=== PATIENT | male | born 1970 | race African-American/Black ===

== ENCOUNTER 2018-03-11 15:57 | Emergency (ER) | payer MEDICAID, OTHER ==
[~2018-03-11] VITALS: Ht 172.7 cm; Wt 66.0 kg
[2018-03-11] MEDS ORDERED: CLOTRIMAZOLE 1% CREAM 30GM TOP STA (17:40)
[2018-03-11] MEDS ORDERED: CEPHALEXIN 500MG CAPSULE PO ONE (17:45)
[2018-03-11 19:16] LABS: BASOPHILS % 0.3 % (0.0-2.0); HEMATOCRIT. 38.6 % (42.0-52.0); LYMPHOCYTES % 33.1 % (20.0-50.0); MEAN CORPUSCULAR HEMOGLOBIN 31.6 pg (28.0-32.0); MEAN CORPUSCULAR VOLUME 93.8 fL (80.0-94.0); NEUTROPHILS % 55.6 % (40.0-76.0); PLATELET 338 x1000/uL (130-400); RED BLOOD CELL COUNT 4.11 mill/uL (4.7-6.1); RED CELL DISTRIBUTION WIDTH 14.1 % (11.6-14.6)
[2018-03-11 19:17] LABS: CHLORIDE 111 mEq/L (98-107)
[2018-03-11 19:21] LABS: ETHANOL BLOOD < 10 mg/dL
[2018-03-11 19:59] VITALS: BP 130/75
== END 2018-03-11 20:02 | disposition home or self-care (01) ==
LOC: ER 16:16
DX: B35.6 Tinea cruris (principal); F12.10 Cannabis abuse, uncomplicated; F10.10 Alcohol abuse, uncomplicated; Y90.0 Blood alcohol level of less than 20 mg/100 ml
CPT/HCPCS: 36415; 80048; 80307; 80329; 82962; 85025; 99284; G0482

== ENCOUNTER 2018-04-30 22:18 | Emergency (ER) | payer MEDICAID ==
[~2018-04-30] VITALS: Ht 162.6 cm; Wt 86.0 kg
[2018-04-30] MEDS ORDERED: LORAZEPAM 1MG TABLET PO ONE (23:15)
[2018-04-30 23:35] VITALS: BP 140/101
== END 2018-04-30 23:43 | disposition home or self-care (01) ==
LOC: ER 22:29
DX: F15.10 Other stimulant abuse, uncomplicated (principal); B35.6 Tinea cruris; F41.9 Anxiety disorder, unspecified; F12.10 Cannabis abuse, uncomplicated; F19.10 Other psychoactive substance abuse, uncomplicated; F17.200 Nicotine dependence, unspecified, uncomplicated
CPT/HCPCS: 99283

== ENCOUNTER 2021-10-28 13:44 | Emergency (ER) | payer MEDICAID ==
[~2021-10-28] VITALS: Ht 172.7 cm; Wt 76.0 kg
[2021-10-28 17:05] VITALS: BP 155/80
[2021-10-28] MEDS ORDERED: CLIN300C12 MT (17:19)
[2021-10-28] MEDS ORDERED: MUPI1OIN4 TP (17:20)
== END 2021-10-28 19:59 | disposition home or self-care (01) ==
LOC: ER 13:44
DX: S01.332A Puncture wound without foreign body of left ear, initial encounter (principal); F10.129 Alcohol abuse with intoxication, unspecified; Y90.9 Presence of alcohol in blood, level not specified; I25.2 Old myocardial infarction; W57.XXXA Bitten or stung by nonvenomous insect and other nonvenomous arthropods, initial encounter; Y93.9 Activity, unspecified; Y92.89 Other specified places as the place of occurrence of the external cause
CPT/HCPCS: 99283

== ENCOUNTER 2021-12-29 05:44 | Inpatient (IN) | payer MEDICAID ==
[~2021-12-29] VITALS: Ht 170.2 cm; Wt 66.7 kg
[~2021-12-29 05:44] MED LIST: CLIN300C12 MT; MUPI1OIN4 TP
[2021-12-29] MEDS ORDERED: ONDANSETRON HCL 4MG/2ML INJ IV STA (06:02)
[2021-12-29] MEDS ORDERED: FAMOTIDINE 20MG/2ML VIAL IV ONE (06:15)
[2021-12-29] MEDS ORDERED: SODIUM CHLORIDE 0.9% 1,000 ML IV ONE (06:15)
[2021-12-29 06:29] LABS: BASOPHILS % 0.4 % (0.0-2.0); EOSINOPHILS % 0.7 % (0.0-5.0); HEMATOCRIT. 43.3 % (42.0-52.0); LYMPHOCYTES % 27.7 % (20.0-50.0); MEAN CORPUSCULAR HEMOGLOBIN 30.5 pg (28.0-32.0); MEAN CORPUSCULAR VOLUME 94.5 fL (80.0-94.0); MEAN PLATELET VOLUME 7.5 fl (7.4-10.4); MONOCYTES % 10.6 % (2.0-8.0); NEUTROPHILS % 60.6 % (40.0-76.0); PLATELET 371 x1000/uL (130-400); RED BLOOD CELL COUNT 4.58 mill/uL (4.7-6.1); RED CELL DISTRIBUTION WIDTH 16.4 % (11.6-14.6)
[2021-12-29 06:38] LABS: CHLORIDE 108 mEq/L (98-107)
[2021-12-29 06:43] LABS: ETHANOL BLOOD < 10 mg/dL
[2021-12-29] MEDS ORDERED: FUROSEMIDE 40MG/4ML VIAL IVP ONE (07:15)
[2021-12-29 09:07] LABS: BG BASE EXCESS -10.1 mmol/L (-2.0-2.0); BG DEOXYHEMOGLOBIN 8.8 % (0.0-5.0); BG FRACTION INSPIRED OXYGEN 21; BG HCO3 ACT 14.7 mmol/L (22.0-26.0); BG METHEMOGLOBIN 0.2 % (0.0-1.5); BG OXYGEN SATURATION 91.1 % (92.0-98.5); BG PH 7.309 (7.350-7.450); BG PO2 69.8 mmHg (75.0-100.0); BG SAMPLE SITE LEFT RADIAL; BG TOTAL HEMOGLOBIN 14.5 g/dL (12.0-18.0); BG VENT MODE ROOM AIR
[2021-12-29] MEDS ORDERED: IPRATROPIUM/ALBUTEROL 0.5-3(2.5)MG/3ML NEB HHN PRN (09:45)
[2021-12-29] MEDS ORDERED: DIPHENHYDRAMINE 50MG/ML VIAL IV PRN (09:45)
[2021-12-29] MEDS ORDERED: CLONIDINE 0.1MG TABLET PO PRN (09:45)
[2021-12-29] MEDS ORDERED: LORAZEPAM 2MG/ML CPJ IV PRN (09:45)
[2021-12-29] MEDS ORDERED: SODIUM POLYSTYRENE SULFONATE 15 G/60 ML BOT PO ONE (10:30)
[2021-12-29] MEDS ORDERED: SODIUM POLYSTYRENE SULFONATE 15 G/60 ML BOT PO NR (10:30)
[2021-12-29] MEDS ORDERED: ALBUTEROL (0.5%) 2.5MG/0.5ML NEB HHN ONE (10:30)
[2021-12-29] MEDS ORDERED: ALBUTEROL (0.5%) 2.5MG/0.5ML NEB HHN NR (10:30)
[2021-12-29 10:36] LABS: CREATINE KINASE 217 IU/L (39-308)
[2021-12-29 12:01] LABS: CLARITY URINE CLEAR (CLEAR); COLOR URINE YELLOW (YELLOW); KETONES URINE NEGATIVE (NEGATIVE); LEUKOCYTE ESTERASE URINE NEGATIVE (NEGATIVE); NITRITE URINE NEGATIVE (NEGATIVE); OCCULT BLOOD URINE NEGATIVE (NEGATIVE); PROTEIN URINE NEGATIVE (NEGATIVE); SPECIFIC GRAVITY URINE 1.007 (1.005-1.030); UROBILINOGEN URINE 0.2 E.U./dL (0.2-1.0)
[2021-12-29 12:10] LABS: *AMPHETAMINES SCREEN URINE NEGATIVE (NEGATIVE); *BARBITURATES SCREEN URINE NEGATIVE (NEGATIVE); *BENZODIAZEPINES SCREEN URINE NEGATIVE (NEGATIVE); CANNABINOID URINE SCREEN NEGATIVE (NEGATIVE); METHADONE URINE SCREEN NEGATIVE (NEGATIVE); OPIATES URINE SCREEN NEGATIVE (NEGATIVE)
[2021-12-29 12:11] LABS: *COCAINE SCREEN URINE PRESUMTIVE POSITIVE (NEGATIVE)
[2021-12-29 12:12] LABS: PHENCYCLIDINE URINE SCREEN NEGATIVE (NEGATIVE)
[2021-12-29] MEDS ORDERED: NALOXONE HCL 0.4MG/ML VIAL IV PRN (14:30)
[2021-12-29] MEDS: CHLORDIAZEPOXIDE 25MG CAPSULE PO SCH ×2 (14:50→21:02)
[2021-12-29 15:14] VITALS: BP 135/101
[2021-12-29 15:30] VITALS: BP 135/101
[2021-12-29 16:30] VITALS: BP 141/95
[2021-12-29] MEDS ORDERED: CLOP75TA33 PO (18:03)
[2021-12-29] MEDS ORDERED: METO-396 PO (18:03)
[2021-12-29] MEDS ORDERED: FURO20TA4 PO (18:04)
[2021-12-29] MEDS ORDERED: DAPA10TA MT (18:04)
[2021-12-29] MEDS: CLOPIDOGREL 75MG TABLET PO SCH (18:15)
[2021-12-29] MEDS: ASPIRIN 81MG TABLET PO SCH (18:15)
[2021-12-29] MEDS ORDERED: ZOLPIDEM TARTRATE 5MG TABLET PO PRN (19:00)
[2021-12-29 20:00] VITALS: BP 122/98
[2021-12-30] VITALS: BP 115/73
[2021-12-30 04:00] VITALS: BP 120/90
[2021-12-30] MEDS: CHLORDIAZEPOXIDE 25MG CAPSULE PO SCH ×3 (05:53→23:00)
[2021-12-30 07:12] LABS: ANTI-NUCLEAR ANTIBODIES DIRECT Positive (Negative)
[2021-12-30 07:20] VITALS: BP 128/103
[2021-12-30] MEDS: ASPIRIN 81MG TABLET PO SCH (11:15)
[2021-12-30] MEDS: CLOPIDOGREL 75MG TABLET PO SCH (11:15)
[2021-12-30 12:10] VITALS: BP 110/83
[2021-12-30] MEDS: FUROSEMIDE 20MG/2ML VIAL IVP SCH ×2 (14:00→14:33)
[2021-12-30] MEDS ORDERED: FUROSEMIDE 40MG TABLET PO SCH (14:30)
[2021-12-30 16:12] LABS: BASOPHILS % 0.5 % (0.0-2.0); EOSINOPHILS % 0.3 % (0.0-5.0); HEMATOCRIT. 43.3 % (42.0-52.0); HEMOGLOBIN. 13.6 g/dL (14.0-18.0); LYMPHOCYTES % 22.5 % (20.0-50.0); MEAN CORPUSCULAR HEMOGLOBIN 30.1 pg (28.0-32.0); MEAN CORPUSCULAR VOLUME 95.5 fL (80.0-94.0); MEAN PLATELET VOLUME 8.2 fl (7.4-10.4); MONOCYTES % 11.6 % (2.0-8.0); NEUTROPHILS % 65.1 % (40.0-76.0); PLATELET 225 x1000/uL (130-400); RED BLOOD CELL COUNT 4.53 mill/uL (4.7-6.1); RED CELL DISTRIBUTION WIDTH 16.4 % (11.6-14.6)
[2021-12-30 16:35] VITALS: BP 123/94
[2021-12-30] MEDS: CITRIC ACID/SODIUM CITRATE SOLN 30ML UDC PO SCH (17:57)
[2021-12-30 20:00] VITALS: BP 113/87
[2021-12-31] VITALS: BP 118/75
[2021-12-31 04:00] VITALS: BP 129/99
[2021-12-31] MEDS: CHLORDIAZEPOXIDE 25MG CAPSULE PO SCH ×2 (05:30→17:37)
[2021-12-31 08:00] VITALS: BP 121/81
[2021-12-31 08:32] LABS: BASOPHILS % 0.3 % (0.0-2.0); HEMATOCRIT. 43.1 % (42.0-52.0); HEMOGLOBIN. 14.1 g/dL (14.0-18.0); LYMPHOCYTES % 18.4 % (20.0-50.0); MEAN CORPUSCULAR HEMOGLOBIN 30.2 pg (28.0-32.0); MEAN CORPUSCULAR VOLUME 92.2 fL (80.0-94.0); MEAN PLATELET VOLUME 8.4 fl (7.4-10.4); MONOCYTES % 6.8 % (2.0-8.0); NEUTROPHILS % 73.5 % (40.0-76.0); PLATELET 217 x1000/uL (130-400); RED BLOOD CELL COUNT 4.68 mill/uL (4.7-6.1); RED CELL DISTRIBUTION WIDTH 15.9 % (11.6-14.6)
[2021-12-31] MEDS: CITRIC ACID/SODIUM CITRATE SOLN 30ML UDC PO SCH ×3 (08:34→17:36)
[2021-12-31] MEDS: ASPIRIN 81MG TABLET PO SCH (08:34)
[2021-12-31] MEDS: FUROSEMIDE 20MG/2ML VIAL IVP SCH (08:34)
[2021-12-31] MEDS: CLOPIDOGREL 75MG TABLET PO SCH (08:34)
[2021-12-31 12:00] VITALS: BP 119/93
[2021-12-31] MEDS: ONDANSETRON HCL 4MG/2ML INJ IV PRN (12:08)
[2021-12-31] MEDS ORDERED: IOHEXOL-350 100 ML BOTTLE ONE (13:30)
[2021-12-31] MEDS ORDERED: LIDOCAINE HCL 1% 20ML VIAL (Pyxis) INJ ONE (13:37)
[2021-12-31] MEDS: LACTULOSE 20G/30ML UDC PO SCH ×2 (14:00→21:28)
[2021-12-31 15:42] LABS: INR 1.4; PROTHROMBIN TIME 14.7 sec (9.6-11.0)
[2021-12-31 16:00] VITALS: BP 116/87
[2021-12-31 17:21] LABS: HEPATITIS B SURFACE ANTIGEN NEGATIVE
[2021-12-31 20:00] VITALS: BP 101/69
[2022-01-01] VITALS: BP 125/95
[2022-01-01] MEDS: ONDANSETRON HCL 4MG/2ML INJ IV PRN (00:03)
[2022-01-01 03:51] VITALS: BP 107/73
[2022-01-01] MEDS: LACTULOSE 20G/30ML UDC PO SCH (05:20)
[2022-01-01 08:00] VITALS: BP 122/97
[2022-01-01] MEDS: CLOPIDOGREL 75MG TABLET PO SCH (08:55)
[2022-01-01] MEDS: ASPIRIN 81MG TABLET PO SCH (08:56)
[2022-01-01] MEDS: CHLORDIAZEPOXIDE 25MG CAPSULE PO SCH (08:56)
[2022-01-01] MEDS: CITRIC ACID/SODIUM CITRATE SOLN 30ML UDC PO SCH ×3 (08:56→17:00)
[2022-01-01 10:08] LABS: BASOPHILS % 0.3 % (0.0-2.0); EOSINOPHILS % 2.1 % (0.0-5.0); HEMATOCRIT. 40.1 % (42.0-52.0); HEMOGLOBIN. 13.3 g/dL (14.0-18.0); LYMPHOCYTES % 15.9 % (20.0-50.0); MEAN CORPUSCULAR HEMOGLOBIN 30.2 pg (28.0-32.0); MEAN CORPUSCULAR VOLUME 91.4 fL (80.0-94.0); MONOCYTES % 8.8 % (2.0-8.0); NEUTROPHILS % 72.9 % (40.0-76.0); PLATELET 223 x1000/uL (130-400); RED BLOOD CELL COUNT 4.39 mill/uL (4.7-6.1); RED CELL DISTRIBUTION WIDTH 16.4 % (11.6-14.6)
[2022-01-01 10:09] LABS: CHLORIDE 108 mEq/L (98-107)
[2022-01-01 10:16] LABS: PHOSPHORUS 2.3 mg/dL (2.5-4.9)
[2022-01-01 12:00] VITALS: BP 120/98
[2022-01-01] MEDS: FUROSEMIDE 40MG/4ML VIAL IVP SCH (12:51)
[2022-01-01] MEDS: MORPHINE SULFATE 2 MG/ML CPJ (NOT FOR IM USE) IV PRN ×2 (12:52→16:49)
[2022-01-01] MEDS: ENOXAPARIN 80MG/0.8ML SYR SUBCUT SCH ×2 (12:53→22:21)
[2022-01-01 16:00] VITALS: BP 130/100
[2022-01-01] MEDS: CALCIUM CARBONATE 500MG TABLET CHEW PO SCH (19:31)
[2022-01-01 20:00] VITALS: BP 119/87
[2022-01-01] MEDS: METOPROLOL TARTRATE 25MG TABLET PO SCH (21:00)
[2022-01-02] VITALS: BP 98/63
[2022-01-02 04:00] VITALS: BP 101/69
[2022-01-02 06:05] LABS: BASOPHILS % 0.4 % (0.0-2.0); EOSINOPHILS % 3.9 % (0.0-5.0); HEMATOCRIT. 39.5 % (42.0-52.0); HEMOGLOBIN. 12.9 g/dL (14.0-18.0); LYMPHOCYTES % 21.2 % (20.0-50.0); MEAN CORPUSCULAR HEMOGLOBIN 30.2 pg (28.0-32.0); MEAN CORPUSCULAR VOLUME 92.4 fL (80.0-94.0); MEAN PLATELET VOLUME 8.2 fl (7.4-10.4); MONOCYTES % 6.7 % (2.0-8.0); NEUTROPHILS % 67.8 % (40.0-76.0); PLATELET 249 x1000/uL (130-400); RED BLOOD CELL COUNT 4.28 mill/uL (4.7-6.1); RED CELL DISTRIBUTION WIDTH 16.2 % (11.6-14.6)
[2022-01-02 06:06] LABS: INR 1.1; PROTHROMBIN TIME 11.9 sec (9.6-11.0)
[2022-01-02 06:10] LABS: CHLORIDE 106 mEq/L (98-107)
[2022-01-02 08:00] VITALS: BP 95/69
[2022-01-02] MEDS: CITRIC ACID/SODIUM CITRATE SOLN 30ML UDC PO SCH ×3 (08:22→17:05)
[2022-01-02] MEDS: FUROSEMIDE 40MG/4ML VIAL IVP SCH (08:22)
[2022-01-02] MEDS: CALCIUM CARBONATE 500MG TABLET CHEW PO SCH ×3 (08:22→17:06)
[2022-01-02] MEDS: CLOPIDOGREL 75MG TABLET PO SCH (08:22)
[2022-01-02] MEDS: METOPROLOL TARTRATE 25MG TABLET PO SCH (09:00)
[2022-01-02] MEDS ORDERED: CHLORDIAZEPOXIDE 25MG CAPSULE PO SCH (09:00)
[2022-01-02 11:43] VITALS: BP 87/55
[2022-01-02] MEDS: ENOXAPARIN 80MG/0.8ML SYR SUBCUT SCH (12:35)
[2022-01-02] MEDS ORDERED: POTASSIUM CHLORIDE 20MEQ TABLET SR PO SCH (13:00)
[2022-01-02 16:00] VITALS: BP 101/69
[2022-01-02 20:00] VITALS: BP 102/74
[2022-01-02] MEDS ORDERED: ENOXAPARIN 60MG/0.6ML SYR SUBCUT SCH (23:00)
[2022-01-03] VITALS: BP 100/70
[2022-01-03 04:00] VITALS: BP 104/75
[2022-01-03 05:29] LABS: BASOPHILS % 0.4 % (0.0-2.0); EOSINOPHILS % 4.5 % (0.0-5.0); HEMATOCRIT. 40.1 % (42.0-52.0); HEMOGLOBIN. 12.9 g/dL (14.0-18.0); LYMPHOCYTES % 30.1 % (20.0-50.0); MEAN CORPUSCULAR HEMOGLOBIN 30.1 pg (28.0-32.0); MEAN CORPUSCULAR VOLUME 93.1 fL (80.0-94.0); MONOCYTES % 10.3 % (2.0-8.0); NEUTROPHILS % 54.7 % (40.0-76.0); PLATELET 284 x1000/uL (130-400); RED BLOOD CELL COUNT 4.31 mill/uL (4.7-6.1); RED CELL DISTRIBUTION WIDTH 16.6 % (11.6-14.6)
[2022-01-03 05:37] LABS: CHLORIDE 105 mEq/L (98-107)
[2022-01-03 08:00] VITALS: BP 107/78
[2022-01-03] MEDS: CITRIC ACID/SODIUM CITRATE SOLN 30ML UDC PO SCH ×2 (09:58→14:23)
[2022-01-03] MEDS: CLOPIDOGREL 75MG TABLET PO SCH (09:58)
[2022-01-03] MEDS: CALCIUM CARBONATE 500MG TABLET CHEW PO SCH ×2 (09:58→14:23)
[2022-01-03 12:00] VITALS: BP 95/68
[2022-01-03] MEDS ORDERED: ENOXAPARIN 80MG/0.8ML SYR SUBCUT SCH ×2 (13:50→15:00)
[2022-01-03] MEDS ORDERED: APIX5TAB MT (13:53)
[2022-01-03 16:57] VITALS: BP 95/68
== END 2022-01-03 19:09 | disposition home or self-care (01) | DRG 816 ==
LOC: ER 05:44 → 6WST 09:21 → EDBEDREQ 09:45 → EDBEDREQTM 09:45 → ENRESERV 13:41 → ER 14:20
PROVIDERS: ADMIT Internal Medicine; ATTEND Internal Medicine
PROC: 02HV33Z Insertion of Infusion Device into Superior Vena Cava, Percutaneous Approach (ICD-10-PCS; principal; 2021-12-31)
PROC: B548ZZA Ultrasonography of Superior Vena Cava, Guidance (ICD-10-PCS; 2021-12-31)
PROC: B518ZZA Fluoroscopy of Superior Vena Cava, Guidance (ICD-10-PCS; 2021-12-31)
DX: T40.5X1A Poisoning by cocaine, accidental (unintentional), initial encounter (principal); K72.00 Acute and subacute hepatic failure without coma; G93.40 Encephalopathy, unspecified; I50.23 Acute on chronic systolic (congestive) heart failure; I13.0 Hypertensive heart and chronic kidney disease with heart failure and stage 1 through stage 4 chronic kidney disease, or unspecified chronic kidney disease; I27.20 Pulmonary hypertension, unspecified; R18.8 Other ascites; I95.9 Hypotension, unspecified; E86.0 Dehydration; N17.9 Acute kidney failure, unspecified; E86.9 Volume depletion, unspecified; I51.3 Intracardiac thrombosis, not elsewhere classified; R07.89 Other chest pain; I25.10 Atherosclerotic heart disease of native coronary artery without angina pectoris; R76.8 Other specified abnormal immunological findings in serum; F14.10 Cocaine abuse, uncomplicated; F41.9 Anxiety disorder, unspecified; E87.5 Hyperkalemia; N18.9 Chronic kidney disease, unspecified; F10.10 Alcohol abuse, uncomplicated; K82.9 Disease of gallbladder, unspecified; Z20.822 Contact with and (suspected) exposure to COVID-19; F17.210 Nicotine dependence, cigarettes, uncomplicated; Z86.73 Personal history of transient ischemic attack (TIA), and cerebral infarction without residual deficits; Z95.5 Presence of coronary angioplasty implant and graft; Z82.49 Family history of ischemic heart disease and other diseases of the circulatory system; Z79.02 Long term (current) use of antithrombotics/antiplatelets; Z71.6 Tobacco abuse counseling; Z71.41 Alcohol abuse counseling and surveillance of alcoholic; Z91.19 Patient's noncompliance with other medical treatment and regimen
CPT/HCPCS: 36415; 36573; 36600; 70551; 71045; 71275; 74018; 76705; 80048; 80053; 80076; 80305; 80320; 81003; 82140; 82375; 82550; 82805; 83036; 83735; 83880; 84100; 84145; 84484; 85025; 86038; 86160; 86705; 86709; 86803; 87340; 87426; 93005; 93306; 93970; 94640; 99285; C1725; C1893; J1650; J1940; J2270; J2405; J3490; J7030; Q9967; G0480

== ENCOUNTER 2022-01-04 13:14 | Emergency (ER) | payer MEDICAID ==
[~2022-01-04] VITALS: Ht 170.2 cm; Wt 59.0 kg
[~2022-01-04 13:14] MED LIST changes: +APIX5TAB MT; -CLIN300C12 MT; +CLOP75TA33 PO; +DAPA10TA MT; +FURO20TA4 PO; +METO-396 PO
[2022-01-04 13:25] VITALS: BP 123/80
[2022-01-04 15:48] LABS: CHLORIDE 105 mEq/L (98-107)
[2022-01-04 15:54] LABS: BASOPHILS % 0.4 % (0.0-2.0); EOSINOPHILS % 4.4 % (0.0-5.0); HEMATOCRIT. 37.7 % (42.0-52.0); HEMOGLOBIN. 12.4 g/dL (14.0-18.0); LYMPHOCYTES % 21.8 % (20.0-50.0); MEAN CORPUSCULAR HEMOGLOBIN 30.8 pg (28.0-32.0); MEAN CORPUSCULAR VOLUME 93.1 fL (80.0-94.0); MEAN PLATELET VOLUME 7.9 fl (7.4-10.4); MONOCYTES % 10.2 % (2.0-8.0); NEUTROPHILS % 63.2 % (40.0-76.0); PLATELET 306 x1000/uL (130-400); RED BLOOD CELL COUNT 4.04 mill/uL (4.7-6.1); RED CELL DISTRIBUTION WIDTH 16.3 % (11.6-14.6)
[2022-01-04] MEDS ORDERED: SODIUM CHLORIDE 0.9% 500 ML IV ONE (16:30)
[2022-01-04] MEDS ORDERED: ASPIRIN 325MG EC TABLET PO ONE (16:30)
== END 2022-01-04 20:55 | disposition left against medical advice (07) ==
LOC: ER 14:23 → SUPCPDRO 21:59
DX: R51.9 Headache, unspecified (principal)
CPT/HCPCS: 36415; 80053; 82962; 83690; 83880; 84484; 85025; 93005; 99284; J7040

== ENCOUNTER 2022-01-14 20:44 | Emergency (ER) | payer MEDICAID ==
[~2022-01-14] VITALS: Ht 177.8 cm; Wt 78.0 kg
[2022-01-14] MEDS ORDERED: KETOROLAC 30MG/ML VIAL IV STA (21:48)
[2022-01-14] MEDS ORDERED: SODIUM CHLORIDE 0.9% 1,000 ML IV ONE (22:00)
[2022-01-14 23:04] LABS: BASOPHILS % 0.6 % (0.0-2.0); EOSINOPHILS % 0.9 % (0.0-5.0); HEMATOCRIT. 40.3 % (42.0-52.0); HEMOGLOBIN. 13.2 g/dL (14.0-18.0); LYMPHOCYTES % 24.5 % (20.0-50.0); MEAN CORPUSCULAR HEMOGLOBIN 30.5 pg (28.0-32.0); MEAN CORPUSCULAR VOLUME 92.9 fL (80.0-94.0); MEAN PLATELET VOLUME 7.8 fl (7.4-10.4); MONOCYTES % 8.4 % (2.0-8.0); NEUTROPHILS % 65.6 % (40.0-76.0); PLATELET 353 x1000/uL (130-400); RED BLOOD CELL COUNT 4.34 mill/uL (4.7-6.1); RED CELL DISTRIBUTION WIDTH 16.5 % (11.6-14.6)
[2022-01-14 23:12] LABS: CHLORIDE 108 mEq/L (98-107)
[2022-01-14] MEDS ORDERED: FUROSEMIDE 40MG/4ML VIAL IVP SCH (23:45)
[2022-01-15 01:30] VITALS: BP 124/92
[2022-01-15] MEDS ORDERED: BACL-141 MT (01:35)
== END 2022-01-15 01:45 | disposition home or self-care (01) ==
LOC: ER 20:44
DX: R07.89 Other chest pain (principal); F14.10 Cocaine abuse, uncomplicated; F15.10 Other stimulant abuse, uncomplicated; F12.10 Cannabis abuse, uncomplicated; I10 Essential (primary) hypertension; Z79.899 Other long term (current) drug therapy; Z98.890 Other specified postprocedural states
CPT/HCPCS: 36415; 71045; 80053; 83690; 83880; 84484; 85025; 93005; 96361; 96374; 96375; 99285; J1885; J1940; J7030

== ENCOUNTER 2022-04-09 20:34 | Inpatient (IN) | payer MEDICAID ==
[~2022-04-09] VITALS: Ht 165.1 cm; Wt 62.6 kg
[~2022-04-09 20:34] MED LIST changes: +BACL-141 MT
[2022-04-10 01:02] LABS: BASOPHILS % 0.2 % (0.0-2.0); HEMATOCRIT. 36.4 % (42.0-52.0); HEMOGLOBIN. 11.6 g/dL (14.0-18.0); LYMPHOCYTES % 17.6 % (20.0-50.0); MEAN CORPUSCULAR HEMOGLOBIN 25.9 pg (28.0-32.0); MEAN CORPUSCULAR VOLUME 81.1 fL (80.0-94.0); MEAN PLATELET VOLUME 8.5 fl (7.4-10.4); MONOCYTES % 6.8 % (2.0-8.0); NEUTROPHILS % 75.4 % (40.0-76.0); PLATELET 354 x1000/uL (130-400); RED BLOOD CELL COUNT 4.49 mill/uL (4.7-6.1); RED CELL DISTRIBUTION WIDTH 20.3 % (11.6-14.6)
[2022-04-10 01:06] LABS: CHLORIDE 71 mEq/L (98-107)
[2022-04-10 01:17] LABS: ETHANOL BLOOD < 10 mg/dL
[2022-04-10] MEDS ORDERED: MORPHINE SULFATE 4 MG/ML CPJ (NOT FOR IM USE) IV ONE (01:45)
[2022-04-10] MEDS ORDERED: AMOXICILLIN/POTASSIUM CLAVULANATE 875/125MG TAB PO ONE (01:45)
[2022-04-10] MEDS ORDERED: ONDANSETRON HCL 4MG/2ML INJ IV ONE (01:45)
[2022-04-10] MEDS ORDERED: CEFTRIAXONE 1 G PREMIX 50 ML IV ONE (01:45)
[2022-04-10 05:45] VITALS: BP 118/93
[2022-04-10 08:00] VITALS: BP 110/79
[2022-04-10] MEDS ORDERED: ACETAMINOPHEN 325MG TABLET PO PRN (08:15)
[2022-04-10] MEDS ORDERED: POTASSIUM CHLORIDE INJ 40 MEQ in DEXT 5% WATER 250 ML IV ONE (08:15)
[2022-04-10] MEDS ORDERED: DIPHENHYDRAMINE 50MG/ML VIAL IV PRN (08:15)
[2022-04-10] MEDS ORDERED: CLONIDINE 0.1MG TABLET PO PRN (08:15)
[2022-04-10] MEDS ORDERED: IPRATROPIUM/ALBUTEROL 0.5-3(2.5)MG/3ML NEB HHN PRN (08:15)
[2022-04-10] MEDS ORDERED: ONDANSETRON HCL 4MG/2ML INJ IV PRN (08:15)
[2022-04-10] MEDS: KCL 20MEQ/100ML X 2 FOR TOTAL KCL 40MEQ/200ML IV SCH ×3 (10:00→12:00)
[2022-04-10] MEDS: AZITHROMYCIN 500 MG in DEXT 5% WATER 250 ML IV SCH (11:00)
[2022-04-10] MEDS: SODIUM CHLORIDE 0.9% 1,000 ML IV SCH (11:00)
[2022-04-10 11:05] LABS: PHOSPHORUS 6.9 mg/dL (2.5-4.9)
[2022-04-10 12:00] VITALS: BP 114/83
[2022-04-10 15:32] VITALS: BP 105/81
[2022-04-10 20:00] VITALS: BP 111/78
[2022-04-10] MEDS ORDERED: CEFTRIAXONE 1,000 MG in DEXTROSE 5% WATER 50 ML IV SCH (21:00)
[2022-04-11] VITALS: BP 105/67
[2022-04-11] MEDS: SODIUM CHLORIDE 0.9% 1,000 ML IV SCH (01:42)
[2022-04-11 04:00] VITALS: BP 97/71
[2022-04-11 08:00] VITALS: BP 99/89
[2022-04-11 08:00] LABS: BASOPHILS % 0.4 % (0.0-2.0); EOSINOPHILS % 0.3 % (0.0-5.0); HEMATOCRIT. 33.2 % (42.0-52.0); HEMOGLOBIN. 10.7 g/dL (14.0-18.0); MEAN CORPUSCULAR HEMOGLOBIN 25.8 pg (28.0-32.0); MEAN PLATELET VOLUME 8.7 fl (7.4-10.4); NEUTROPHILS % 66.3 % (40.0-76.0); PLATELET 343 x1000/uL (130-400); RED BLOOD CELL COUNT 4.15 mill/uL (4.7-6.1); RED CELL DISTRIBUTION WIDTH 19.9 % (11.6-14.6)
[2022-04-11 08:18] LABS: CHLORIDE 73 mEq/L (98-107)
[2022-04-11] MEDS ORDERED: POTASSIUM CHLORIDE 20MEQ TABLET SR PO NR (09:00)
[2022-04-11] MEDS: AZITHROMYCIN 500 MG in DEXT 5% WATER 250 ML IV SCH (09:07)
[2022-04-11] MEDS ORDERED: RISPERIDONE 0.5MG TABLET PO SCH (11:45)
[2022-04-11] MEDS: SEVELAMER CARBONATE 800 MG TABLET PO SCH ×2 (11:57→16:23)
[2022-04-11 12:00] VITALS: BP 106/68
[2022-04-11 15:48] VITALS: BP 110/84
[2022-04-11] MEDS ORDERED: ENOXAPARIN 60MG/0.6ML SYR SUBCUT SCH (16:00)
[2022-04-11 20:00] VITALS: BP 114/78
[2022-04-11] MEDS: RISPERIDONE 1MG TABLET PO SCH (21:55)
[2022-04-11 23:10] LABS: *AMPHETAMINES SCREEN URINE NEGATIVE (NEGATIVE); *BARBITURATES SCREEN URINE NEGATIVE (NEGATIVE); *BENZODIAZEPINES SCREEN URINE NEGATIVE (NEGATIVE); *COCAINE SCREEN URINE PRESUMTIVE POSITIVE (NEGATIVE); CANNABINOID URINE SCREEN NEGATIVE (NEGATIVE); METHADONE URINE SCREEN NEGATIVE (NEGATIVE); OPIATES URINE SCREEN PRESUMTIVE POSITIVE (NEGATIVE); PHENCYCLIDINE URINE SCREEN NEGATIVE (NEGATIVE)
[2022-04-12] VITALS: BP 129/80
[2022-04-12 04:00] VITALS: BP 101/78
[2022-04-12 06:38] LABS: BASOPHILS % 0.4 % (0.0-2.0); EOSINOPHILS % 0.2 % (0.0-5.0); HEMATOCRIT. 34.3 % (42.0-52.0); HEMOGLOBIN. 10.9 g/dL (14.0-18.0); LYMPHOCYTES % 27.1 % (20.0-50.0); MEAN CORPUSCULAR HEMOGLOBIN 25.7 pg (28.0-32.0); MEAN CORPUSCULAR VOLUME 80.5 fL (80.0-94.0); MEAN PLATELET VOLUME 8.8 fl (7.4-10.4); MONOCYTES % 7.3 % (2.0-8.0); PLATELET 306 x1000/uL (130-400); RED BLOOD CELL COUNT 4.26 mill/uL (4.7-6.1); RED CELL DISTRIBUTION WIDTH 20.3 % (11.6-14.6)
[2022-04-12] MEDS: RISPERIDONE 1MG TABLET PO SCH (08:46)
[2022-04-12] MEDS: SEVELAMER CARBONATE 800 MG TABLET PO SCH (08:46)
[2022-04-12] MEDS ORDERED: POTASSIUM CHLORIDE 20MEQ TABLET SR PO NR (09:00)
[2022-04-12] MEDS ORDERED: FUROSEMIDE 40MG/4ML VIAL IVP SCH (10:30)
[2022-04-12 10:39] LABS: PHOSPHORUS 3.3 mg/dL (2.5-4.9)
[2022-04-12] MEDS ORDERED: POTASSIUM CHLORIDE INJ 60 MEQ in DEXT 5% WATER 500 ML IV NR (11:00)
== END 2022-04-12 11:30 | disposition left against medical advice (07) | DRG 194 ==
LOC: ER 20:34 → MICUSO 04-10 01:30 → 8WST 04-10 06:20
PROVIDERS: ADMIT Internal Medicine; ATTEND Internal Medicine
DX: I13.0 Hypertensive heart and chronic kidney disease with heart failure and stage 1 through stage 4 chronic kidney disease, or unspecified chronic kidney disease (principal); N17.9 Acute kidney failure, unspecified; I82.431 Acute embolism and thrombosis of right popliteal vein; E87.1 Hypo-osmolality and hyponatremia; F29 Unspecified psychosis not due to a substance or known physiological condition; R16.0 Hepatomegaly, not elsewhere classified; E83.39 Other disorders of phosphorus metabolism; R18.8 Other ascites; K76.1 Chronic passive congestion of liver; N18.9 Chronic kidney disease, unspecified; E87.6 Hypokalemia; K08.89 Other specified disorders of teeth and supporting structures; F17.210 Nicotine dependence, cigarettes, uncomplicated; I25.10 Atherosclerotic heart disease of native coronary artery without angina pectoris; I50.23 Acute on chronic systolic (congestive) heart failure; I50.813 Acute on chronic right heart failure; K76.9 Liver disease, unspecified; R74.8 Abnormal levels of other serum enzymes; Z20.822 Contact with and (suspected) exposure to COVID-19; Z53.29 Procedure and treatment not carried out because of patient's decision for other reasons; F10.10 Alcohol abuse, uncomplicated; F14.10 Cocaine abuse, uncomplicated; R07.89 Other chest pain; Z71.6 Tobacco abuse counseling; Z79.02 Long term (current) use of antithrombotics/antiplatelets; Z91.19 Patient's noncompliance with other medical treatment and regimen
CPT/HCPCS: 36415; 71045; 74176; 76700; 80048; 80053; 80061; 80305; 80320; 82533; 82550; 83605; 83735; 83880; 83930; 84100; 84295; 84443; 84484; 85025; 87426; 93005; 93970; 99285; J0456; J0696; J1650; J2270; J2405; J3480; J7030; J7060; G0480

== ENCOUNTER 2022-04-12 20:31 | Emergency (ER) | payer MEDICAID ==
[~2022-04-12] VITALS: Ht 167.6 cm; Wt 56.6 kg
[2022-04-12 20:40] VITALS: BP 108/82
[2022-04-12] MEDS ORDERED: MAGNESIUM/ALUMINUM HYDROXIDE/SIMETHICONE 30ML UDC PO ONE (21:00)
[2022-04-12] MEDS ORDERED: ASPIRIN 81MG TABLET PO ONE (21:00)
== END 2022-04-13 00:31 | disposition left against medical advice (07) ==
LOC: ER 20:31
DX: R07.89 Other chest pain (principal); I11.0 Hypertensive heart disease with heart failure; I50.9 Heart failure, unspecified; F14.10 Cocaine abuse, uncomplicated; Z79.899 Other long term (current) drug therapy
CPT/HCPCS: 93005; 99283

== ENCOUNTER 2022-04-13 11:28 | Emergency (ER) | payer MEDICAID ==
[~2022-04-13] VITALS: Ht 177.8 cm; Wt 73.0 kg
[2022-04-13 11:49] VITALS: BP 107/79
[2022-04-13 13:13] LABS: BASOPHILS % 1.1 % (0.0-2.0); HEMATOCRIT. 34.7 % (42.0-52.0); HEMOGLOBIN. 11.2 g/dL (14.0-18.0); LYMPHOCYTES % 16.7 % (20.0-50.0); MEAN CORPUSCULAR HEMOGLOBIN 25.9 pg (28.0-32.0); MEAN CORPUSCULAR VOLUME 80.7 fL (80.0-94.0); MEAN PLATELET VOLUME 8.8 fl (7.4-10.4); MONOCYTES % 6.3 % (2.0-8.0); NEUTROPHILS % 75.9 % (40.0-76.0); PLATELET 331 x1000/uL (130-400); RED CELL DISTRIBUTION WIDTH 20.7 % (11.6-14.6)
[2022-04-13 13:19] LABS: CHLORIDE 81 mEq/L (98-107)
== END 2022-04-13 15:43 | disposition left against medical advice (07) ==
LOC: ER 11:28
DX: R10.9 Unspecified abdominal pain (principal); R60.0 Localized edema
CPT/HCPCS: 36415; 80053; 83880; 84484; 85025; 99283